=== PATIENT | female | born 1985 | race Caucasian/White ===

== ENCOUNTER 2016-07-10 20:07 | Emergency (ER) | payer BC ==
[2016-07-10 21:22] LABS: Appearance,Urine Turbid (Clear); Bacteria,Urine Moderate /hpf; Bilirubin,Urine Negative (Negative); Glucose,Urine (UA) Negative (Negative); Ketones,Urine Trace (Negative); Leukocyte Esterase,Urine Large (Negative); Mucus,Urine Moderate /hpf; Nitrite,Urine Negative (Negative); Particle Count 25815; Protein,Urine 2+ (Negative); RBC,Urine >182 /hpf (0-5); Specific Gravity,Urine 1.034 (1.001-1.035); Squamous Epithelial Cell,Urine 27 /hpf (0-4); UA Billing (MACRO vs. MICRO) MICRO; WBC,Urine >182 /hpf (0-5)
[2016-07-10] MEDS ORDERED: valACYclovir 500 MG TAB PO STA (22:20)
[2016-07-10] MEDS ORDERED: SULFAMETH-TMP DS STARTER PACK 2 TAB BTL PO STA (22:21)
--- NOTE | 2016-07-10 22:25 | ED ---
Female Urogenital HPI - General Chief complaint: Urogenital Stated complaint: Female Time Seen by Provider: 07/10/16 20:38 Source: patient, RN notes reviewed Mode of arrival: ambulatory Limitations: no limitations - History of Present Illness Initial comments: Patient is a 31-year-old female with chief complaint of 3 days of dysuria and red bumps over her labia. Patient reports that she found out that her cheated on her a year ago. She states that she had not received any testing for 6 transmitted disease afterwards. She states that she is currently with a new sexual partner but is not concerned of any STDs from him. Patient states that she's had a upper respiratory infection for the past few days prior to her urinary symptoms. Patient states that she has no specific vaginal discharge. She reports that every time she urinates it's very severe pain. Patient states that she's never had any history of herpes or sexual transmitted infection. Patient denies any nausea vomiting fever or chills. Last Menstrual Period: 04/27/16 - Related Data Previous Rx's Medication Instructions Recorded Acetaminophen-Codeine 300-30mg 1 tab PO Q4H PRN #12 tablet 07/10/16 [Tylenol #3] Sulfamethox-Tmp 800-160Mg [Bactrim 1 tab PO Q12HR #14 tab 07/10/16 DS 800-160 mg] valACYclovir HCL [Valtrex] 1,000 mg PO BID 10 Days 07/10/16 Allergies Allergy/AdvReac Type Severity Reaction Status Date / Time No Known Allergies Allergy Verified 07/10/16 20:30 Review of Systems ROS Statement: Those systems with pertinent positive or pertinent negative responses have been documented in the HPI. ROS Other: All systems not noted in ROS Statement are negative. Past Medical History Past Medical History: No Reported History History of Any Multi-Drug Resistant Organisms: None Reported Past Surgical History: No Surgical Hx Reported Past Psychological History: Depression Smoking Status: Never smoker Past Alcohol Use History: Occasional Past Drug Use History: None Reported General Exam - General Exam Comments Initial Comments: Pleasant 31-year-old female. Limitations: no limitations General appearance: alert, in no apparent distress Head exam: Present: atraumatic, normocephalic, normal inspection Eye exam: Present: normal appearance, PERRL, EOMI. Absent: scleral icterus, conjunctival injection, periorbital swelling ENT exam: Present: normal exam, mucous membranes moist Neck exam: Present: normal inspection. Absent: tenderness, meningismus, lymphadenopathy Respiratory exam: Present: normal lung sounds bilaterally. Absent: respiratory distress, wheezes, rales, rhonchi, stridor Cardiovascular Exam: Present: regular rate, normal rhythm, normal heart sounds. Absent: systolic murmur, diastolic murmur, rubs, gallop, clicks GI/Abdominal exam: Present: soft, normal bowel sounds. Absent: distended, tenderness, guarding, rebound, rigid External exam: Present: erythema (Swelling and erythema to the right labia majora.), swelling, lesions (Erythematous ulcerations scattered throughout bilateral labia. Majority of the lesions are in the labia minora.). Absent: normal external exam Speculum exam: Present: vaginal discharge (Scant vaginal discharge.), other (I did obtain a culture from the vaginal opening.). Absent: normal speculum exam ( I was able to perform a full speculum exam due to significant amount of pain and irritation at the patient wasn't.), cervical discharge, vaginal bleeding Extremities exam: Present: normal inspection, full ROM, normal capillary refill. Absent: tenderness, pedal edema, joint swelling, calf tenderness Back exam: Present: normal inspection Neurological exam: Present: alert, oriented X3, CN II-XII intact Psychiatric exam: Present: normal affect, normal mood Skin exam: Present: warm, dry, intact, normal color. Absent: rash Course Vital Signs 07/10/16 07/10/16 20:31 21:29 Temperature 99 F 98.8 F Pulse Rate 89 100 Respiratory 20 20 Rate Blood Pressure 138/81 112/73 O2 Sat by Pulse 98 99 Oximetry Medical Decision Making - Medical Decision Making Patient is a 31-year-old female with chief complaint of 3 days of dysuria and red bumps over her labia. Patient reports that she found out that her cheated on her a year ago. She states that she had not received any testing for 6 transmitted disease afterwards. She states that she is currently with a new sexual partner but is not concerned of any STDs from him. Patient states that she's had a upper respiratory infection for the past few days prior to her urinary symptoms. Patient states that she has no specific vaginal discharge. She reports that every time she urinates it's very severe pain. Patient states that she's never had any history of herpes or sexual transmitted infection. Patient's lesions are consistent with herpes genitalis. Multiple erythematous blisters and ulcerations scattered throughout bilateral labia majora and majority of them are in the labia minora. The right labia is erythematous and swollen. Patient's urinalysis just so signs of significant infection. Was unable to perform a full speculum exam due to significant amount of pain the patient was then. Patient refused. Did obtain a culture of some scant vaginal discharge at the vaginal opening. Patient will be started on Valtrex and Bactrim for urinary tract infection. I discussed that she will know the results in 2 days. Patient agrees with treatment plan will comply. - Lab Data Lab Results 07/10/16 07/10/16 Range/Units 20:41 20:41 Urine Color Yellow Urine Appearance Turbid H (Clear) Urine pH 6.0 (5.0-8.0) Ur Specific [place] 1.034 (1.001-1.035) Urine Protein 2+ H (Negative) Urine Glucose (UA) Negative (Negative) Urine Ketones Trace H (Negative) Urine Blood Moderate H (Negative) Urine Nitrite Negative (Negative) Urine Bilirubin Negative (Negative) Urine Urobilinogen 3.0 (<2.0) mg/dL Ur Leukocyte Esterase Large H (Negative) Urine RBC >182 H (0-5) /hpf Urine WBC >182 H (0-5) /hpf Ur Squamous Epith Cells 27 H (0-4) /hpf Urine Bacteria Moderate H (None) /hpf Urine Mucus Moderate H (None) /hpf Urine HCG, Qual Not Detected (Not Detectd) Disposition Clinical Impression: Herpes genitalia, Urinary tract infection Disposition: HOME SELF-CARE Condition: Good Instructions: Urinary Tract Infection in Women (ED), Genital Herpes Simplex (ED ) Additional Instructions: Patient aggressively prescriptions. Follow-up with primary care provider. Return to emergency occur. Prescriptions: Acetaminophen-Codeine 300-30mg [Tylenol #3] 1 tab PO Q4H PRN #12 tablet PRN Reason: Pain Sulfamethox-Tmp 800-160Mg [Bactrim DS 800-160 mg] 1 tab PO Q12HR #14 tab valACYclovir HCL [Valtrex] 1,000 mg PO BID 10 Days Referrals: Paula Cho MD [Primary Care Provider] - 1-2 days Time of Disposition: 22:24
[2016-07-10 22:51] VITALS: BP 125/85; PULSE 98; RESP 18; TEMP 99
[2016-07-12 12:32] LABS: Chlamydia/GC Source Vaginal
== END 2016-07-10 22:56 | disposition home or self-care (01) ==
LOC: EC 20:07
DX: A60.00 Herpesviral infection of urogenital system, unspecified (principal); N39.0 Urinary tract infection, site not specified; Z79.899 Other long term (current) drug therapy
CPT/HCPCS: 36415; 81001; 81025; 86694; 86695; 86696; 86780; 87070; 87086; 87205; 87491; 87591; 87808; 99283

== ENCOUNTER 2017-05-15 14:51 | Emergency (ER) | payer BC ==
[2017-05-15 14:59] VITALS: RESP 18
--- NOTE | 2017-05-15 15:59 | ED ---
Female Urogenital HPI - General Chief complaint: Urogenital Stated complaint: Female Time Seen by Provider: 05/15/17 15:10 Source: patient, RN notes reviewed, old records reviewed Mode of arrival: ambulatory Limitations: no limitations - History of Present Illness Initial comments: This patient is a 31-year-old female presents today chief complaint of possible and concern for where her IUD is located. Patient states that she's been feeling for the strings for IUD and has not been able to locate them for the past few days. Patient states that she took a positive urine test at home today and was concerned. Patient states she has no vaginal bleeding. She reports that she is currently being treated for UTI and yeast infection. She states that she has no fever or chills. She denies any back pain or significant lower abdominal pain. Patient reports that her IUD was placed by her PCP proximally 4 years ago, due to come out in December. Last menstrual cycle was 04/12/2018. - Related Data Home Medications Medication Instructions Recorded Confirmed Phenazopyridine [Pyridium] 200 mg PO TID 05/15/17 05/15/17 Pnv No.95/Ferrous Fum/Folic AC 1 tab PO DAILY 05/15/17 05/15/17 [ Multivitamin Tablet] Sulfamethox-Tmp 800-160Mg [Bactrim 1 tab PO Q12HR 05/15/17 05/15/17 DS 800-160 mg] Allergies Allergy/AdvReac Type Severity Reaction Status Date / Time No Known Allergies Allergy Verified 05/15/17 16:19 Review of Systems ROS Statement: Those systems with pertinent positive or pertinent negative responses have been documented in the HPI. ROS Other: All systems not noted in ROS Statement are negative. Past Medical History Past Medical History: No Reported History History of Any Multi-Drug Resistant Organisms: None Reported Past Surgical History: No Surgical Hx Reported Past Psychological History: Depression Smoking Status: Never smoker Past Alcohol Use History: Rare Past Drug Use History: None Reported General Exam - General Exam Comments Initial Comments: This is a 31-year-old female. No distress. Limitations: no limitations General appearance: alert, in no apparent distress Head exam: Present: atraumatic, normocephalic, normal inspection Eye exam: Present: normal appearance, PERRL, EOMI. Absent: scleral icterus, conjunctival injection, periorbital swelling ENT exam: Present: normal exam, mucous membranes moist Neck exam: Present: normal inspection. Absent: tenderness, meningismus, lymphadenopathy Respiratory exam: Present: normal lung sounds bilaterally. Absent: respiratory distress, wheezes, rales, rhonchi, stridor Cardiovascular Exam: Present: regular rate, normal rhythm, normal heart sounds. Absent: systolic murmur, diastolic murmur, rubs, gallop, clicks GI/Abdominal exam: Present: soft, normal bowel sounds. Absent: distended, tenderness, guarding, rebound, rigid External exam: Present: normal external exam Speculum exam: Present: vaginal discharge. Absent: normal speculum exam ( Patient has significant vaginal discharge consistent with [place] infection.) By manual exam: Present: normal by manual exam, other (no strings identified to locate IUD). Absent: cervical motion tenderness, adnexal tenderness, adnexal mass, uterine enlargement Extremities exam: Present: normal inspection, full ROM, normal capillary refill. Absent: tenderness, pedal edema, joint swelling, calf tenderness Back exam: Present: normal inspection Neurological exam: Present: alert, oriented X3, CN II-XII intact Psychiatric exam: Present: normal affect, normal mood Skin exam: Present: warm, dry, intact, normal color. Absent: rash Course Vital Signs 05/15/17 05/15/17 05/15/17 14:56 15:00 16:44 Temperature 97.9 F 98.8 F Pulse Rate 102 H 74 Respiratory 18 18 Rate Blood Pressure 181/91 134/76 120/59 O2 Sat by Pulse 100 97 Oximetry 05/15/17 19:04 Temperature 99.4 F Pulse Rate 78 Respiratory 18 Rate Blood Pressure 105/56 O2 Sat by Pulse 98 Oximetry Medical Decision Making - Medical Decision Making This patient is a 31-year-old female presents today chief complaint of possible and concern for where her IUD is located. Patient states that she's been feeling for the strings for IUD and has not been able to locate them for the past few days. Patient states that she took a positive urine test at home today and was concerned. Patient states she has no vaginal bleeding. She reports that she is currently being treated for UTI and yeast infection. Patients pelvic exam was performed on able to identify strings for IUD. She does have actual discharge infection. Your analysis is also positive for UTI. She's on medication to treat both of these. She still has multiple days left of her anabiotic's. Transvaginal ultrasound was preformed. She has no evidence of intrauterine .Patient's serum hCG was 153. I discuss the patient will need to follow up with [facility]. We did contact the S[facility]IOR BOOKKEEPER in regards to the unlocated IUD. Patient reports that she did not pull it off herself. S[facility]IOR BOOKKEEPER recommended one view KUB. Discussed risks and benefits for the X ray, patient agrees to persue the xray. Patient KUB shows no identification for KUB. Patient informed of these results, startedon vitamin for and will follow up with OBGYN. All question were answered and return parameters discussed. - Lab Data Lab Results 05/15/17 05/15/17 05/15/17 Range/Units 15:41 15:41 15:41 HCG, Quant mIU/mL Urine Color Dark Yellow Urine Appearance Cloudy H (Clear) Urine pH 6.5 (5.0-8.0) Ur Specific [place] 1.018 (1.001-1.035) Urine Protein Trace H (Negative) Urine Glucose (UA) Negative (Negative) Urine Ketones Negative (Negative) Urine Blood Negative (Negative) Urine Nitrite Positive H (Negative) Urine Bilirubin Negative (Negative) Urine Urobilinogen 2.0 (<2.0) mg/dL Ur Leukocyte Esterase Large H (Negative) Urine RBC 4 (0-5) /hpf Urine WBC 17 H (0-5) /hpf Ur Squamous Epith Cells 14 H (0-4) /hpf Urine Bacteria Moderate H (None) /hpf Urine Mucus Rare H (None) /hpf Urine HCG, Qual Detected (Not Detectd) Blood Type A Positive Blood Type Recheck No 05/15/17 Range/Units 15:41 HCG, Quant 153.0 mIU/mL Urine Color Urine Appearance (Clear) Urine pH (5.0-8.0) Ur Specific [place] (1.001-1.035) Urine Protein (Negative) Urine Glucose (UA) (Negative) Urine Ketones (Negative) Urine Blood (Negative) Urine Nitrite (Negative) Urine Bilirubin (Negative) Urine Urobilinogen (<2.0) mg/dL Ur Leukocyte Esterase (Negative) Urine RBC (0-5) /hpf Urine WBC (0-5) /hpf Ur Squamous Epith Cells (0-4) /hpf Urine Bacteria (None) /hpf Urine Mucus (None) /hpf Urine HCG, Qual (Not Detectd) Blood Type Blood Type Recheck - Radiology Data Radiology results: report reviewed findings could before too early to visualize intrauterine but spontaneous and a topic is not excluded. No evidence of IUD. Serial hCG follow-up is recommended. Disposition Clinical Impression: , UTI (urinary tract infection) Disposition: HOME SELF-CARE Condition: Good Instructions: (ED) Additional Instructions: Patient advised to follow-up with S[facility] Dr. Corrales. Take . No heavy lifting. Return to the emergency department if any alarming signs or symptoms occur. Referrals: None,Stated [Primary Care Provider] - 1-2 days Rossana Corrales MD [STAFF PHYSICIAN] - 1-2 days Kaitlyn Clancy MD [STAFF PHYSICIAN] - 1-2 days Chivo Hansen MD [STAFF PHYSICIAN] - 1-2 days Time of Disposition: 19:18
[2017-05-15 16:08] LABS: Appearance,Urine Cloudy (Clear); Bacteria,Urine Moderate /hpf; Bilirubin,Urine Negative (Negative); Blood,Urine Negative (Negative); Color,Urine Dark Yellow; Glucose,Urine (UA) Negative (Negative); Ketones,Urine Negative (Negative); Leukocyte Esterase,Urine Large (Negative); Mucus,Urine Rare /hpf; Nitrite,Urine Positive (Negative); PH, Urine 6.5 (5.0-8.0); Protein,Urine Trace (Negative); RBC,Urine 4 /hpf (0-5); Specific Gravity,Urine 1.018 (1.001-1.035); Squamous Epithelial Cell,Urine 14 /hpf (0-4); WBC,Urine 17 /hpf (0-5)
--- NOTE | 2017-05-15 16:24 | US ---
EXAMINATION TYPE: US OB <=14 wks transvag DATE OF EXAM: 05/15/2017 COMPARISON: NONE CLINICAL HISTORY: Pain. patient found out she was , supposed to have IUD but unable to find s tring. EXAM PERFORMED: Transvaginal (TV) and Transabdominal (TA) EXAM MEASUREMENTS: GESTATIONAL AGE / DATING Physician Established: not established Dates by LMP: (4 weeks/5 days) EDC: 01/17/2018 Dates by First Scan: No previous this is first scan Dates by Current Scan for: no IUP identified MATERNAL ANATOMY Uterus: 7.2 x 4.6 x 6.5 cm Right Ovary: 3.7 x 3.8 x 4.2 cm Left Ovary: 3.2 x 2.5 x 3.5 cm Post CDS / Adnexa: wnl Presence of free fluid: no free fluid Presence of corpus luteal cyst: on right ovary measures 3.3 x 3.1 x 3.3 cm GESTATION / SURVEY CRL: not identified MSD: not identified Date of LMP: 04/12/2017 Beta HcG (if available): not available at time of exam Uterus is heterogeneous. Endometrium is thickened up to 13 mm. No gestational sac, yolk sac, po le is identified. Linear hypodensity to suggest IUD in endometrial canal is not clearly identified. N o free fluid is seen in pelvic cul-de-sac. Within right ovary there is 3.3 cm simple appearing cyst. Both ovaries are identified. There is no ortiz spicious extraovarian adnexal lesion seen bilaterally. Tiny nabothian cyst is seen in cervix towards end of study. IMPRESSION: Findings could reflect too early to visualize intrauterine but spontaneous is in d ifferential and ectopic is not excluded, serial beta hCG and ultrasound follow-up is advise d.
[2017-05-15 19:06] VITALS: BP 105/56; PULSE 78; TEMP 99.4
--- NOTE | 2017-05-15 19:09 | XR ---
EXAMINATION TYPE: XR KUB DATE OF EXAM: 05/15/2017 COMPARISON: NONE HISTORY: Pain TECHNIQUE: 2 views FINDINGS: 2 upright views of the abdomen were obtained that show no sign of intestinal obstruction or pneumoperitoneum. There is some retained fecal material on the right side. There is some fecal mater ial in the rectum. There are no pathologic calcifications over the kidneys. Lung bases are clear. The re is no evidence of a mass. IMPRESSION: Nonacute abdomen. There is probably mild constipation. I do not see evidence of a radiopa que IUD.
== END 2017-05-15 19:24 | disposition home or self-care (01) ==
LOC: EC 14:51
DX: O23.41 Unspecified infection of urinary tract in pregnancy, first trimester (principal); Z3A.01 Less than 8 weeks gestation of pregnancy; Z32.01 Encounter for pregnancy test, result positive; Z79.899 Other long term (current) drug therapy
CPT/HCPCS: 36415; 74018; 76801; 76817; 81001; 81025; 84702; 86900; 86901; 87086; 99284

== ENCOUNTER → 2017-05-17 | Outpatient (CLI) | payer BC | END | disposition home or self-care (01) | LOC: LABWHC1 16:29 | PROVIDERS: ATTEND Obstetrics & Gynecology Obstetrics | DX: O20.0 Threatened abortion (principal); Z3A.00 Weeks of gestation of pregnancy not specified | CPT/HCPCS: 36415; 84702 ==

== ENCOUNTER → 2017-05-22 | Outpatient (CLI) | payer BC ==
[2017-05-22 11:49] LABS: HCT 37.1 % (34.0-46.0); HGB 12.1 gm/dL (11.4-16.0); MCH 27.9 pg (25.0-35.0); MCHC 32.7 g/dL (31.0-37.0); MCV 85.2 fL (80.0-100.0); Platelet Count 333 k/uL (150-450); RBC 4.35 m/uL (3.80-5.40); RDW 13.3 % (11.5-15.5); WBC 5.7 k/uL (3.8-10.6)
[2017-05-22 18:03] LABS: HIV AB P24 Non-Reactive (Non-Reactive); HIV P24 AG Non-Reactive (Non-Reactive)
== END | disposition home or self-care (01) ==
LOC: LABWHC1 11:05
PROVIDERS: ATTEND Obstetrics & Gynecology Obstetrics
DX: Z34.90 Encounter for supervision of normal pregnancy, unspecified, unspecified trimester (principal); Z3A.00 Weeks of gestation of pregnancy not specified
CPT/HCPCS: 36415; 84702; 85027; 86762; 86780; 87086; 87340; 87390

== ENCOUNTER → 2017-05-27 | Outpatient (CLI) | payer BC | END | disposition home or self-care (01) | LOC: LABWHC1 11:39 | PROVIDERS: ATTEND Obstetrics & Gynecology Obstetrics | DX: O20.0 Threatened abortion (principal) | CPT/HCPCS: 36415; 84702 ==

== ENCOUNTER 2017-06-23 13:01 | Observation (INO) | payer BC ==
[2017-06-23] MEDS ORDERED: SODIUM CHLORIDE 0.9% 1,000 ML IV ONE (14:19)
[2017-06-23] MEDS ORDERED: diphenhydrAMINE 50 MG/ML 1 ML VIAL IVP STA (14:21)
[2017-06-23] MEDS ORDERED: METOCLOPRAMIDE 5 MG/ML 2 ML VIAL IVP STA (14:21)
--- NOTE | 2017-06-23 14:24 | ED ---
Nausea/Vomiting/Diarrhea HPI - General Chief complaint: Nausea/Vomiting/Diarrhea Stated complaint: Vomiting 10 weeks Time Seen by Provider: 06/23/17 14:09 Source: patient Mode of arrival: ambulatory Limitations: no limitations - History of Present Illness Initial comments: This is a 31-year-old female who is at 10 weeks estimated gestational age who presents for department for nausea vomiting and decreased urine output. The patient states that she has a history of hyperemesis gravidarum in the past requiring IV therapies at home. She states that she also had some type of pump that she had to use in her previous pregnancies to keep her from vomiting throughout the . She states that the hyperemesis lasted 7 months during her last . She states that she has not had any lower pelvic cramping or vaginal bleeding. She has not urinated in 2 days and thus she called her [facility] who advised her to come to the emergency department. She denies any diarrhea. No fevers or chills. No significant abdominal discomfort. Just feels nauseated. She has tried Zofran at home without any relief. Also has been on B6 and Unisom without relief there as well. - Related Data Home Medications Medication Instructions Recorded Confirmed Doxylamine Succinate [Unisom] 25 mg PO HS PRN 06/23/17 06/23/17 Ondansetron HCl [Zofran] 4 mg PO BID PRN 06/23/17 06/23/17 Pyridoxine [Vitamin B-6] 50 mg PO HS 06/23/17 06/23/17 Allergies Allergy/AdvReac Type Severity Reaction Status Date / Time No Known Allergies Allergy Verified 06/23/17 15:49 Review of Systems ROS Statement: Those systems with pertinent positive or pertinent negative responses have been documented in the HPI. ROS Other: All systems not noted in ROS Statement are negative. Past Medical History Past Medical History: No Reported History History of Any Multi-Drug Resistant Organisms: None Reported Past Surgical History: No Surgical Hx Reported Past Psychological History: Depression Smoking Status: Never smoker Past Alcohol Use History: Rare Past Drug Use History: None Reported General Exam - General Exam Comments Initial Comments: Constitutional: Awake alert Appears comfortable Head: Normocephalic atraumatic Eyes: no conjunctival injection No scleral icterus EOMI ENT: Oral mucosa is tacky, nonerythematous oropharynx Neck: No JVD Supple Heart: Regular rate rhythm normal S1-S2 no murmurs Lungs: Clear to auscultation bilaterally No wheezing No rales Abdomen: Soft nondistended nontender Extremities: Non edematous DP pulses intact Radial pulses intact Neuro: A&Ox3 No focal neurologic deficits Psych: Appropriate mood and affect Limitations: no limitations Course Vital Signs 06/23/17 06/23/17 06/23/17 13:10 14:44 16:10 Temperature 99.2 F 99.0 F Pulse Rate 84 100 83 Respiratory 17 16 16 Rate Blood Pressure 105/67 110/70 117/63 O2 Sat by Pulse 100 98 98 Oximetry Medical Decision Making - Medical Decision Making This is a 31-year-old female who came in for nausea and vomiting associated with . The patient has had weight loss and is clinically dehydrated with ketones in the blood. She also has a mild anion gap metabolic acidosis. The patient was started on D5 half-normal saline. She was given a liter bolus. No urination emergency department. She has not urinated in 2 days. Going to keep her overnight for hydration. Dr. Nicholas accepts the admission. - Lab Data Result diagrams: 06/23/17 14:16 06/23/17 14:16 Lab Results 06/23/17 06/23/17 Range/Units 14:16 14:16 WBC 10.5 (3.8-10.6) k/uL RBC 5.08 (3.80-5.40) m/uL Hgb 14.5 (11.4-16.0) gm/dL Hct 41.0 (34.0-46.0) % MCV 80.6 (80.0-100.0) fL MCH 28.5 (25.0-35.0) pg MCHC 35.4 (31.0-37.0) g/dL RDW 12.9 (11.5-15.5) % Plt Count 286 (150-450) k/uL Neutrophils % 79 % Lymphocytes % 15 % Monocytes % 4 % Eosinophils % 1 % Basophils % 0 % Neutrophils # 8.3 H (1.3-7.7) k/uL Lymphocytes # 1.5 (1.0-4.8) k/uL Monocytes # 0.4 (0-1.0) k/uL Eosinophils # 0.1 (0-0.7) k/uL Basophils # 0.1 (0-0.2) k/uL Sodium 137 (137-145) mmol/L Potassium 4.1 (3.5-5.1) mmol/L Chloride 104 (98-107) mmol/L Carbon Dioxide 17 L (22-30) mmol/L Anion Gap 16 mmol/L BUN 11 (7-17) mg/dL Creatinine 0.46 L (0.52-1.04) mg/dL Est GFR (CKD-EPI)AfAm >90 (>60 ml/min/1.73 sqM) Est GFR (CKD-EPI)NonAf >90 (>60 ml/min/1.73 sqM) Glucose 70 L (74-99) mg/dL Calcium 9.3 (8.4-10.2) mg/dL Magnesium 1.8 (1.6-2.3) mg/dL Total Bilirubin 0.5 (0.2-1.3) mg/dL AST 17 (14-36) U/L ALT 20 (9-52) U/L Alkaline Phosphatase 75 (38-126) U/L Total Protein 7.4 (6.3-8.2) g/dL Albumin 4.1 (3.5-5.0) g/dL Acetone, Qual Positive (Negative) Disposition Clinical Impression: Hyperemesis gravidarum Disposition: ADMITTED IP TO THIS [facility] Condition: Stable
[2017-06-23 14:56] LABS: Basophils # (A) 0.1 k/uL (0-0.2); Basophils % (A) 0 %; Eosinophils # (A) 0.1 k/uL (0-0.7); Eosinophils % (A) 1 %; HGB 14.5 gm/dL (11.4-16.0); Lymphocytes # (A) 1.5 k/uL (1.0-4.8); Lymphocytes % (A) 15 %; MCH 28.5 pg (25.0-35.0); MCHC 35.4 g/dL (31.0-37.0); MCV 80.6 fL (80.0-100.0); Mean Platelet Volume 7.1; Monocytes # (A) 0.4 k/uL (0-1.0); Monocytes % (A) 4 %; Neutrophils # (A) 8.3 k/uL (1.3-7.7); Neutrophils % (A) 79 %; Platelet Count 286 k/uL (150-450); RBC 5.08 m/uL (3.80-5.40); RDW 12.9 % (11.5-15.5); WBC 10.5 k/uL (3.8-10.6)
[2017-06-23 15:32] LABS: ALT 20 U/L (9-52); AST 17 U/L (14-36); Albumin 4.1 g/dL (3.5-5.0); Alkaline Phosphatase 75 U/L (38-126); Anion Gap 16 mmol/L; Blood Urea Nitrogen 11 mg/dL (7-17); Calcium 9.3 mg/dL (8.4-10.2); Carbon Dioxide 17 mmol/L (22-30); Chloride 104 mmol/L (98-107); Glucose 70 mg/dL (74-99); Magnesium 1.8 mg/dL (1.6-2.3); Potassium 4.1 mmol/L (3.5-5.1); Sodium 137 mmol/L (137-145); Total Bilirubin 0.5 mg/dL (0.2-1.3); Total Protein 7.4 g/dL (6.3-8.2)
[2017-06-23] MEDS ORDERED: DEXTROSE 5%-0.45% NACL 1,000 ML IV ONE (15:36)
[2017-06-23] MEDS ORDERED: NALOXONE 0.4 MG/ML 1 ML VIAL IV PRN (16:09)
[2017-06-23 16:31] LABS: Appearance,Urine Cloudy (Clear); Color,Urine Yellow; Protein,Urine 1+ (Negative); Specific Gravity,Urine 1.028 (1.001-1.035)
[2017-06-23 16:32] LABS: Bacteria,Urine Rare /hpf; Bilirubin,Urine Negative (Negative); Blood,Urine Negative (Negative); Glucose,Urine (UA) Negative (Negative); Ketones,Urine 4+ (Negative); Leukocyte Esterase,Urine Small (Negative); Mucus,Urine Many /hpf; Nitrite,Urine Negative (Negative); RBC,Urine 3 /hpf (0-5); Squamous Epithelial Cell,Urine 10 /hpf (0-4); WBC,Urine 10 /hpf (0-5)
[2017-06-23 17:37] VITALS: BMI 41.6
[2017-06-23] MEDS ORDERED: PYRIDOXINE 50 MG TAB PO SCH (21:00)
[2017-06-23] MEDS: METOCLOPRAMIDE 5 MG/ML 2 ML VIAL IVP PRN (21:27)
[2017-06-23] MEDS: diphenhydrAMINE 25 MG CAP PO PRN (22:28)
[2017-06-24] MEDS: DEXTROSE 5%-0.45% NACL 1,000 ML IV SCH ×2 (01:26→11:27)
[2017-06-24] MEDS: METOCLOPRAMIDE 5 MG/ML 2 ML VIAL IVP PRN ×2 (03:36→09:11)
[2017-06-24] MEDS: diphenhydrAMINE 25 MG CAP PO PRN (06:58)
[2017-06-24 09:01] VITALS: BP 106/66; PULSE 86; RESP 20; TEMP 97.8
[2017-06-24 09:21] LABS: Appearance,Urine Clear (Clear); Bacteria,Urine Rare /hpf; Bilirubin,Urine Negative (Negative); Blood,Urine Negative (Negative); Color,Urine Yellow; Glucose,Urine (UA) Negative (Negative); Hyaline Casts,Urine 2 /lpf (0-2); Ketones,Urine 1+ (Negative); Leukocyte Esterase,Urine Small (Negative); Mucus,Urine Many /hpf; Nitrite,Urine Negative (Negative); Protein,Urine Trace (Negative); Specific Gravity,Urine 1.013 (1.001-1.035); Squamous Epithelial Cell,Urine 1 /hpf (0-4); Urobilinogen,Urine <2.0 mg/dL (<2.0); WBC,Urine 6 /hpf (0-5)
--- NOTE | 2017-06-24 11:44 | P.OBCN ---
History of Present Illness Consult date: 06/24/17 Reason for consult: other (Hyperemesis gravidarum, 10 weeks intrauterine ) Chief complaint: Hyperemesis, dehydration History of present illness: The patient is a 31-year-old 4 para 2012 admitted at approximately 10 weeks of is established by last menstrual period and confirmed by first trimester ultrasound. She is admitted with the hyperemesis gravidarum for which she has a history in her previous . She additionally was noted to be severely dehydrated with 4+ ketones on urinalysis. Ultrasound performed in the office has demonstrated a normal viable intrauterine . Upon admission she has been aggressively rehydrated and, this morning, has tolerated a regular diet. She denies any other significant symptoms and reports that her nausea significantly improved. Obstetrical history: 4 para 2012 with 2 term vaginal deliveries of the second of which was complicated by hyperemesis for the majority of the . She also had one early miscarriage. Laboratory workup for labs was within normal limits and the patient is Rh+. Gynecologic history: Unremarkable with no history of any infections to include STDs. Review of Systems Review of systems is confined to history of present illness. Past Medical History Past Medical History: No Reported History, Pneumonia Additional Past Medical History / Comment(s): hx of hyperemesis. !st preg n/v, 2nd preg miscarrage at 6 weeks, 3rd preg hyperemsis for 7 months with picc line and at home IV hydration. Hs of anemia, vegetarian diet. Hx UTI April 2017. Fx right ankle Feb 2017 History of Any Multi-Drug Resistant Organisms: None Reported Past Surgical History: No Surgical Hx Reported Additional Past Anesthesia/Blood Transfusion Reaction / Comm: epidural with last caused profound hypotension. Past Psychological History: Depression Smoking Status: Never smoker Past Alcohol Use History: Rare Past Drug Use History: None Reported - Past Family History Mother Family Medical History: Musculoskeletal Disorder Additional Family Medical History / Comment(s): scoliosis, spina bifida Father Family Medical History: Coronary Artery Disease (CAD) Additional Family Medical History / Comment(s): Insulin resistance, heart problems, in January 2017 Medications and Allergies Home Medications Medication Instructions Recorded Confirmed Type Doxylamine Succinate [Unisom] 25 mg PO HS PRN 06/23/17 06/23/17 History Ondansetron HCl [Zofran] 4 mg PO BID PRN 06/23/17 06/23/17 History Pyridoxine [Vitamin B-6] 50 mg PO HS 06/23/17 06/23/17 History Allergies Allergy/AdvReac Type Severity Reaction Status Date / Time No Known Allergies Allergy Verified 06/23/17 17:53 Exam - Vital Signs Vital signs: Vital Signs Temp Pulse Pulse Pulse Resp BP BP 06/24/17 08:59 97.8 F 86 20 106/66 06/24/17 03:30 98.2 F 76 18 99/56 06/23/17 20:25 97.9 F 82 18 103/56 06/23/17 17:30 84 06/23/17 17:24 99.5 F 84 16 124/68 06/23/17 17:20 99.5 F 84 16 124/68 06/23/17 17:16 99 F 82 16 114/62 06/23/17 16:10 99.0 F 83 16 117/63 06/23/17 14:44 100 16 110/70 06/23/17 13:10 99.2 F 84 17 105/67 Pulse Ox 06/24/17 08:59 06/24/17 03:30 97 06/23/17 20:25 97 06/23/17 17:30 06/23/17 17:24 98 06/23/17 17:20 98 06/23/17 17:16 98 06/23/17 16:10 98 06/23/17 14:44 98 06/23/17 13:10 100 Intake and Output 06/23/17 06/24/17 06/24/17 22:59 06:59 14:59 Intake Total 240 970 Output Total 200 300 150 Balance 40 670 -150 Intake: Intake, IV Titration 970 Amount Dextrose 5%-0.45% NaCl 1, 970 000 ml @ 100 mls/hr IV . Q10H [facility] Rx#:[id number] Oral 240 Output: Urine 200 300 150 Other: Weight 130.6 kg In general, this is a well-developed, moderately obese white female in no acute distress. Her heart has regular rhythm and rate without murmur. Her lungs are clear to auscultation bilaterally in all salas. Her abdomen is nondistended, has normal active bowel sounds, is soft, nontender, without any palpable masses , hepatosplenomegaly, or hernias. Her extremities without any cyanosis, clubbing, or edema and are nontender to palpation bilaterally. Digital cervical examination is deferred. Results Result Diagrams: 06/23/17 14:16 06/23/17 14:16 Abnormal Lab Results - Last 24 Hours (Table) 06/23/17 06/23/17 06/23/17 Range/Units 14:16 14:16 16:10 Neutrophils # 8.3 H (1.3-7.7) k/uL Carbon Dioxide 17 L (22-30) mmol/L Creatinine 0.46 L (0.52-1.04) mg/dL Glucose 70 L (74-99) mg/dL Urine Appearance Cloudy H (Clear) Urine Protein 1+ H (Negative) Urine Ketones 4+ H (Negative) Ur Leukocyte Esterase Small H (Negative) Urine WBC 10 H (0-5) /hpf Ur Squamous Epith Cells 10 H (0-4) /hpf Urine Bacteria Rare H (None) /hpf Urine Mucus Many H (None) /hpf 06/24/17 Range/Units 08:50 Neutrophils # (1.3-7.7) k/uL Carbon Dioxide (22-30) mmol/L Creatinine (0.52-1.04) mg/dL Glucose (74-99) mg/dL Urine Appearance (Clear) Urine Protein Trace H (Negative) Urine Ketones 1+ H (Negative) Ur Leukocyte Esterase Small H (Negative) Urine WBC 6 H (0-5) /hpf Ur Squamous Epith Cells (0-4) /hpf Urine Bacteria Rare H (None) /hpf Urine Mucus Many H (None) /hpf Assessment and Plan (1) 10 weeks gestation of Current Visit: Yes Status: Acute Code(s): Z3A.10 - 10 WEEKS GESTATION OF SNOMED Code(s): 56889015 (2) Hyperemesis gravidarum Current Visit: Yes Status: Acute Code(s): O21.0 - MILD HYPEREMESIS GRAVIDARUM SNOMED Code(s): 67619276 Plan: The patient has been rehydrated though there were still 1+ ketones present on this morning's urinalysis. I would consider bolusing another liter of fluid and discharging the patient home as she is tolerating a regular diet. I strongly encouraged her to aggressively continue oral hydration at home with anti-menorrhagia every 6 as needed. She otherwise is to follow-up in the office in approximately 2 weeks as previously scheduled. There is no obstetrical intervention necessary at this time. I will otherwise sign off the consult as the patient should be stable for discharge today.
--- NOTE | 2017-06-24 12:55 | P.HPIM ---
History of Present Illness H&P Date: 06/23/17 Chief Complaint: Nausea and vomiting This is a 31-year-old female who is at 10 weeks estimated gestational age who presents for department for nausea vomiting and decreased urine output. The patient states that she has a history of hyperemesis gravidarum in the past requiring IV therapies at home. She states that she also had Zofran pump that she had to use in her previous pregnancies to keep her from vomiting throughout the . She states that the hyperemesis lasted 7 months during her last . She states that she has not had any lower pelvic cramping or vaginal bleeding. She has not urinated in 2 days and thus she called her OB/ TAR ROOFER who advised her to come to the emergency department. She denies any diarrhea. No fevers or chills. No significant abdominal discomfort. Just feels nauseated. She has tried Zofran at home without any relief. Also has been on B6 and Unisom without relief there as well. Review of Systems Constitutional: Patient denies any fever or chills . No generalized weakness or weight loss. Abdomen: Nausea and vomiting and unable to keep down food. No abdominal pain he had decreased urine output Cardiovascular: Patient denies any chest pain or short of breath no palpitations. Respiratory: patient denied any cough is from production. No shortness of breath Neurologic: Patient denied any numbness or tingling headache. Musculoskeletal: Patient denies any complaints of joint swelling or deformity. Skin: Negative Psychiatric: Negative Endocrine: No heat or cold intolerance. No recent weight gain. Genitourinary: No dysuria or hematuria. All other 14 point ROS negative except the above Past Medical History Past Medical History: No Reported History History of Any Multi-Drug Resistant Organisms: None Reported Past Surgical History: No Surgical Hx Reported Past Psychological History: Depression Smoking Status: Never smoker Past Alcohol Use History: Rare Past Drug Use History: None Reported - Past Family History Mother Family Medical History: Musculoskeletal Disorder Additional Family Medical History / Comment(s): scoliosis, spina bifida Father Family Medical History: Coronary Artery Disease (CAD) Additional Family Medical History / Comment(s): Insulin resistance, heart problems, in January 2017 Medications and Allergies Home Medications Medication Instructions Recorded Confirmed Type Doxylamine Succinate [Unisom] 25 mg PO HS PRN 03/09/18 03/09/18 History Ondansetron HCl [Zofran] 4 mg PO BID PRN 06/23/17 06/23/17 History Pyridoxine [Vitamin B-6] 50 mg PO HS 06/23/17 06/23/17 History Allergies Allergy/AdvReac Type Severity Reaction Status Date / Time No Known Allergies Allergy Verified 06/23/17 17:53 Physical Exam Vitals: Vital Signs Temp Pulse Resp BP Pulse Ox 06/23/17 16:10 99.0 F 83 16 117/63 98 06/23/17 14:44 100 16 110/70 98 06/23/17 13:10 99.2 F 84 17 105/67 100 Intake and Output 06/23/17 06/23/17 06/23/17 06:59 14:59 22:59 Other: Weight 131.542 kg Patient Weight 06/24/17 06:59 Weight 131.542 kg PHYSICAL EXAMINATION: Patient is lying in the bed comfortably, no acute distress, awake alert and oriented.. HEENT: Normocephalic. Neck is supple. Pupils reactive. Nostrils clear. Oral cavity is moist. Ears reveal no drainage. Neck reveals no JVD, carotid bruits, or thyromegaly. CHEST EXAMINATION: Trachea is central. Symmetrical expansion. Lung salas clear to auscultation and percussion. CARDIAC: Normal S1, S2 with no gallops. No murmurs ABDOMEN: Soft. Bowel sounds normal. No organomegaly. No abdominal bruits. Extremities: reveal no edema. No clubbing or cyanosis Neurologically awake, alert, oriented x3 with well-coordinated movements. No focal deficits noted Skin: No rash or skin lesions. Psychiatric: Coperative. Nonsuicidal Musculoskeletal: No joint swelling or deformity. Normal range of motion. Results CBC & Chem 7: 06/23/17 14:16 06/23/17 14:16 Labs: Abnormal Lab Results - Last 24 Hours (Table) 06/23/17 06/23/17 06/23/17 Range/Units 14:16 14:16 16:10 Neutrophils # 8.3 H (1.3-7.7) k/uL Carbon Dioxide 17 L (22-30) mmol/L Creatinine 0.46 L (0.52-1.04) mg/dL Glucose 70 L (74-99) mg/dL Urine Appearance Cloudy H (Clear) Urine Protein 1+ H (Negative) Urine Ketones 4+ H (Negative) Ur Leukocyte Esterase Small H (Negative) Urine WBC 10 H (0-5) /hpf Ur Squamous Epith Cells 10 H (0-4) /hpf Urine Bacteria Rare H (None) /hpf Urine Mucus Many H (None) /hpf Assessment and Plan Assessment: Hyperemesis gravidarum 10 weeks intrauterine Previous history of significant hyperemesis during requiring antiemetic pump Metabolic ketoacidosis Morbid obesity Plan: Patient denied on IV hydration and antiemetics in the form of Reglan. We will repeat urinalysis tomorrow.. Encourage oral intake and follow closely further admissions based on the clinical course. TOWER CLEANER was consulted. Time with Patient: Greater than 30
--- NOTE | 2017-06-24 13:02 | P.DS ---
Providers Date of admission: 06/23/17 16:09 Expected date of discharge: 06/24/17 Attending physician: Iva Nicholas Consults: 06/23/17 17:40 Consult Physician Routine Consulting Provider: Ingrid Hartman Consult Reason/Comments: hyperemesis gravidarum Do you want consulting provider notified?: Yes Primary care physician: Stated None Hospital Course: Discharge diagnosis Hyperemesis gravidarum 10 weeks intrauterine Previous history of significant hyperemesis during requiring antiemetic pump Metabolic ketoacidosis. Improved Morbid obesity Hospital course This is a 31-year-old female who is at 10 weeks estimated gestational age who presents for department for nausea vomiting and decreased urine output. The patient states that she has a history of hyperemesis gravidarum in the past requiring IV therapies at home. She states that she also had Zofran pump that she had to use in her previous pregnancies to keep her from vomiting throughout the . She states that the hyperemesis lasted 7 months during her last . She states that she has not had any lower pelvic cramping or vaginal bleeding. She has not urinated in 2 days and thus she called her OB/ TAX APPRAISER who advised her to come to the emergency department. She denies any diarrhea. No fevers or chills. No significant abdominal discomfort. Just feels nauseated. She has tried Zofran at home without any relief. Also has been on B6 and Unisom without relief there as well. Patient was continued on IV hydration and antiemetics in the form of Reglan. Repeat urinalysis showed ketones 1+ compared to 4+ on admission... Encourage oral intake . Patient is able to take oral diet slowly.. GREENHOUSE SPECIALIST was consulted. Recommended outpatient follow-up in a week. Otherwise patient is stable to be discharged home. Patient was told to take Reglan history of Zofran for next 3 days every 6 hours as needed for nausea and vomiting. Follow with primary care physician and GREENHOUSE SPECIALIST in the a week. Patient is stable to be discharged home. Discharge physical examination was done and vitals reviewed. Patient Condition at Discharge: Stable Plan - Discharge Summary Discharge Rx Participant: Yes New Discharge Prescriptions: New Metoclopramide [Reglan] 10 mg PO Q6HR PRN #12 tab PRN Reason: Nausea Continue Doxylamine Succinate [Unisom] 25 mg PO HS PRN PRN Reason: Allergy Symptoms Ondansetron HCl [Zofran] 4 mg PO BID PRN PRN Reason: Nausea Pyridoxine [Vitamin B-6] 50 mg PO HS Discharge Medication List Doxylamine Succinate [Unisom] 25 mg PO HS PRN 06/23/17 [History] Ondansetron HCl [Zofran] 4 mg PO BID PRN 06/23/17 [History] Pyridoxine [Vitamin B-6] 50 mg PO HS 06/23/17 [History] Metoclopramide [Reglan] 10 mg PO Q6HR PRN #12 tab 06/24/17 [Rx] Discharge Disposition: HOME SELF-CARE
== END 2017-06-24 13:58 | disposition home or self-care (01) ==
LOC: EC 13:01 → 6PED 16:09
PROVIDERS: ADMIT Internal Medicine; ATTEND Internal Medicine
DX: O21.1 Hyperemesis gravidarum with metabolic disturbance (principal); O99.211 Obesity complicating pregnancy, first trimester; E66.01 Morbid (severe) obesity due to excess calories; Z3A.10 10 weeks gestation of pregnancy; O99.341 Other mental disorders complicating pregnancy, first trimester; F32.9 Major depressive disorder, single episode, unspecified; Z87.440 Personal history of urinary (tract) infections; Z82.49 Family history of ischemic heart disease and other diseases of the circulatory system; Z82.79 Family history of other congenital malformations, deformations and chromosomal abnormalities; Z68.41 Body mass index [BMI] 40.0-44.9, adult
CPT/HCPCS: 96374; 96361 ×6; 96365; 96366; 96375 ×2; 99284 ×2; 96376 ×2; 99285; 36415; 80053; 82009; 83735; 85025; 81001 ×2; 84702; G0378 ×2; J1200; J2765 ×2

== ENCOUNTER → 2017-07-19 | Outpatient (CLI) | payer BC ==
[~2017-07-19] MED LIST: LACTATED RINGERS 1,000 ML IV ONE; ONDANSETRON 4 MG/2 ML VIAL IVP PRN
[2017-07-19 13:55] LABS: Basophils % (A) 0 %; Eosinophils # (A) 0.1 k/uL (0-0.7); Eosinophils % (A) 1 %; HCT 37.5 % (34.0-46.0); HGB 13.1 gm/dL (11.4-16.0); Lymphocytes # (A) 1.3 k/uL (1.0-4.8); Lymphocytes % (A) 24 %; MCH 28.2 pg (25.0-35.0); MCV 80.7 fL (80.0-100.0); Mean Platelet Volume 7.4; Monocytes # (A) 0.3 k/uL (0-1.0); Monocytes % (A) 5 %; Neutrophils # (A) 3.5 k/uL (1.3-7.7); Neutrophils % (A) 68 %; Platelet Count 231 k/uL (150-450); RBC 4.65 m/uL (3.80-5.40); WBC 5.2 k/uL (3.8-10.6)
[2017-07-19 14:08] VITALS: BP 117/69; PULSE 82; RESP 16; TEMP 97.2
[2017-07-19 14:08] LABS: ALT 19 U/L (9-52); AST 20 U/L (14-36); Albumin 3.7 g/dL (3.5-5.0); Alkaline Phosphatase 63 U/L (38-126); Anion Gap 14 mmol/L; Blood Urea Nitrogen 8 mg/dL (7-17); Calcium 9.2 mg/dL (8.4-10.2); Carbon Dioxide 18 mmol/L (22-30); Chloride 106 mmol/L (98-107); Glucose 93 mg/dL (74-99); Sodium 138 mmol/L (137-145); Total Bilirubin 0.4 mg/dL (0.2-1.3); Total Protein 6.9 g/dL (6.3-8.2)
[2017-07-19] MEDS: LACTATED RINGERS 1,000 ML IV SCH ×2 (14:15→15:40)
--- NOTE | 2017-07-19 15:08 | US ---
EXAMINATION TYPE: US OB limited DATE OF EXAM: 07/19/2017 COMPARISON: NONE CLINICAL HISTORY: 1st trimester heart tones. EXAM PERFORMED: Transabdominal (TA) GESTATIONAL AGE / DATING Physician Established: (13 weeks/2 days) EDC: No growth performed on today?s study per ordering physician SURVEY Was not performed. HEART RATE: 141 bpm RHYTHM: Normal IMPRESSION: 1. Limited examination documenting heart tones. 2. Cardiac activity at the time of this examination was 141 bpm.
[2017-07-19 15:52] LABS: Appearance,Urine Clear (Clear); Bacteria,Urine Rare /hpf; Bilirubin,Urine Negative (Negative); Blood,Urine Negative (Negative); Color,Urine Yellow; Glucose,Urine (UA) Negative (Negative); Hyaline Casts,Urine 28 /lpf (0-2); Ketones,Urine 2+ (Negative); Leukocyte Esterase,Urine Trace (Negative); Mucus,Urine Many /hpf; Nitrite,Urine Negative (Negative); Protein,Urine Trace (Negative); RBC,Urine 1 /hpf (0-5); Specific Gravity,Urine 1.018 (1.001-1.035); Squamous Epithelial Cell,Urine 8 /hpf (0-4); Urobilinogen,Urine <2.0 mg/dL (<2.0); WBC,Urine 4 /hpf (0-5)
--- NOTE | 2017-07-28 09:04 | P.MSEPDOC ---
Presenting Problems - Arrival Data Date of Arrival on Unit: 07/19/17 Time of Arrival on Unit: 13:16 Mode of Transport: Portable - Complaint OB-Reason for Admission/Chief Complaint: Hyperemesis Comment: pt states has been unable to keep anything down, diclegis and regbryanna was working but not anymore, has lost 30 lbs since May Medical History - Information : 4 Para: 2 Term: 2 : 0 Abortions: Spontaneous or Elective: 1 Number of Living Children: 2 - Gestational Age Gestational Age by MARIO ALBERTO (wks/days): 13 Weeks and 2 Days - History Complications: Other Comment: hyperemesis Review of Systems - Review of Systems Constitutional: Recent weight loss Breast: No problems ENT: No problems Cardiovascular: No problems Respiratory: No problems Gastrointestinal: No problems Genitourinary: No problems Musculoskeletal: No problems Neurological: No problems Skin: No problems Vital Signs - Temperature Temperature: 97.2 F Temperature Source: Temporal Artery Scan - Pulse Right Pulse Rate: 82 Pulse Assessment Method: Automatic Cuff - Respirations Respiratory Rate: 16 Oxygen Delivery Method: Room Air O2 Sat by Pulse Oximetry: 98 - Blood Pressure Right Arm Sitting Blood Pressure: 117/69 Blood Pressure Mean: 85 Blood Pressure Source: Automatic Cuff Medical Screen Scoring (Pre) - Uterine Contractions Frequency: N/A Duration: N/A Intensity: N/A - Maternal Vital Signs Maternal Temperature: N/A Maternal Blood Pressure: N/A Signs of Preeclampsia: N/A Maternal Respirations: N/A - Pain Assessment Pain Scale Used: Numeric (1 - 10) Pain Intensity: 0 - Maternal Trauma Maternal Trauma: N/A - Total Score Total Score (Pre): 0 - Level of Risk Level of Risk: Low (0-5) Physician Notification (Pre) - Physician Notified Physician Notified Date: 07/19/17 Physician Notified Time: 13:42 Spoke With: Devan New Order Received: Yes (fluids, cbc,cmp, ua, U/S for fhts) Physician Notification (Post) - Physician Notified Physician Notified Date: 07/19/17 Physician Notified Time: 17:07 Physician/Practitioner Notified:: Dr Hartman Spoke With: Dr Hartman New Order Received: Yes - Notification Comment Comment: Discharge home. Pt to coordinate PICC line placement on outpatient basis. Follow up in the office next week with Rere GILMORE Disposition - Disposition OB Disposition: Discharge to home Discharge Date: 07/19/17 Discharge Time: 17:30 I agree with the RN Medical Screening Exam: Yes Risk & Benefit of care provided described in d/c instruction: Yes Diagnosis: VOMITING OF , UNSPECIFIED
== END | disposition home or self-care (01) ==
LOC: FBPOP 13:15
PROVIDERS: ATTEND Obstetrics & Gynecology Obstetrics
DX: O21.9 Vomiting of pregnancy, unspecified (principal); Z3A.13 13 weeks gestation of pregnancy
CPT/HCPCS: 76815; 80053; 81001; 85025; 96360; 96361; 99214

== ENCOUNTER → 2017-07-21 | Day surgery (SDC) | payer BC ==
[2017-07-20 12:02] VITALS: BMI 40.1
[~2017-07-21] MED LIST changes: -LACTATED RINGERS 1,000 ML IV ONE; +LIDOCAINE 2% INJ 20 MG/ML SQ ONE; -ONDANSETRON 4 MG/2 ML VIAL IVP PRN
[2017-07-21 10:41] VITALS: BP 139/63; PULSE 103; RESP 18; TEMP 98.8
--- NOTE | 2017-07-21 13:00 | IR ---
PICC LINE PLACEMENT: HISTORY: Dehydration requiring long-term IV access PROCEDURE: Ultrasound and fluoroscopic guidance of PICC line placement. COMPLICATIONS: None ANESTHESIA: 1. 1% Lidocaine locally. FINDINGS/TECHNIQUE: The procedure was explained to the patient. The risks, complications, benefits and alternatives were discussed and any questions were answered. Informed consent was obtained. The patient was placed supine on the fluoroscopic table and prepped and draped in the usual sterile [facility] ion. Utilizing a 21 gauge needle and sonographic and fluoroscopic guidance, access in the vein was achieved and there is placement of a 0.018 guidewire. The vein is patent. A 4-F sheath was placed o brenna the guidewire. The guidewire and dilator were removed and a 4-F. PICC line was placed through th e sheath with the tip at the level of the SVC. The sheath was removed, the catheter was flushed and sutured into position. The patient was stable throughout the procedure and remained stable upon disc harge from the Department of Radiology. The vein puncture was patent under ultrasound. A maza scale image was obtained to document patency of the vein punctured. All elements of the maximal barrier technique were utilized. FLUOROSCOPY TIME: 0.2 minutes, one image submitted IMPRESSION: Successful PICC line placement under ultrasound and fluoroscopic guidance.
== END ==
LOC: CATHCVL 10:26
PROVIDERS: ATTEND Radiology Diagnostic Radiology
DX: O21.0 Mild hyperemesis gravidarum (principal)
CPT/HCPCS: 36569; 76937; 77001; C1751; C1769; J2001

== ENCOUNTER 2017-12-05 21:15 | Outpatient (CLI) | payer BC ==
[2017-12-05 23:14] VITALS: BP 123/77; PULSE 88; RESP 20; TEMP 96.9
--- NOTE | 2017-12-11 11:38 | P.MSEPDOC ---
Presenting Problems - Arrival Data Date of Arrival on Unit: 12/05/17 Time of Arrival on Unit: 21:15 Mode of Transport: Wheelchair - Complaint OB-Reason for Admission/Chief Complaint: Pain Comment: pelvic pain and contractions since 1699 Medical History - Information : 4 Para: 2 Term: 2 : 0 Abortions: Spontaneous or Elective: 1 Number of Living Children: 2 - Gestational Age Gestational Age by MARIO ALBERTO (wks/days): 33 Weeks and 1 Days Review of Systems - Review of Systems Constitutional: No problems Breast: No problems ENT: No problems Cardiovascular: No problems Respiratory: No problems Gastrointestinal: No problems Genitourinary: No problems Musculoskeletal: No problems Neurological: No problems Skin: No problems Vital Signs - Temperature Temperature: 96.9 F Temperature Source: Temporal Artery Scan - Pulse Right Brachial Pulse Rate: 88 Pulse Assessment Method: Automatic Cuff - Respirations Respiratory Rate: 20 Oxygen Delivery Method: Room Air O2 Sat by Pulse Oximetry: 98 - Blood Pressure Right Arm Blood Pressure: 123/77 Blood Pressure Mean: 92 Blood Pressure Source: Automatic Cuff Medical Screen Scoring (Pre) - Cervical Exam Dilation: 0 cm = 0 Effacement: Exam Deferred Membranes: Intact - Uterine Contractions Frequency: > 5 minutes apart = 1 Duration: > 40 seconds = 2 Intensity: N/A - Maternal Vital Signs Maternal Temperature: N/A Maternal Blood Pressure: N/A Signs of Preeclampsia: N/A Maternal Respirations: N/A - Pain Assessment Pain Location and Character: Pelvic Pain Scale Used: Numeric (1 - 10) Pain Intensity: 5 Pain Description: *Acute Pain Radiation Location: none Pain Frequency: Constant Pain Duration: 4 Pain Duration Units: Hours Pain Behavior: Moving Slowly, Vocalization Pain Aggravating Factors: Activity - Assessment Baseline FHR: 150 Heart Rate - NICHD Category: Category I (Normal) = 0 NST: Reactive Position: N/A Station: N/A - Total Score Total Score (Pre): 3 - Level of Risk Level of Risk: Low (0-5) Physician Notification (Pre) - Physician Notified Physician Notified Date: 12/05/17 Physician Notified Time: 21:59 Physician/Practitioner Notifed:: Dr. Corrales Spoke With: Dr. Corrales New Order Received: Yes - Notification Comment Comment: discharge pt home, call for appt tomorrow am and follow up in office tomorrow Disposition - Disposition OB Disposition: Triage, Discharge to home, Written follow up instructions reviewed Discharge Date: 12/05/17 Discharge Time: 22:15 I agree with the RN Medical Screening Exam: Yes Risk & Benefit of care provided described in d/c instruction: Yes Diagnosis: FALSE LABOR BEFORE 37 COMPLETED WEEKS OF GEST, THIRD TRI
== END 2017-12-05 22:15 | disposition home or self-care (01) ==
LOC: FBPOP 21:15
PROVIDERS: ATTEND Obstetrics & Gynecology
DX: O47.03 False labor before 37 completed weeks of gestation, third trimester (principal); Z3A.33 33 weeks gestation of pregnancy
CPT/HCPCS: 59025; 99213

== ENCOUNTER 2017-12-06 16:39 | Outpatient (CLI) | payer BC ==
[2017-12-06] MEDS ORDERED: LACTATED RINGERS 1,000 ML IV SCH ×2 (17:00→18:45)
[2017-12-06 18:17] LABS: Appearance,Urine Clear (Clear); Bacteria,Urine Rare /hpf; Bilirubin,Urine Negative (Negative); Blood,Urine Negative (Negative); Color,Urine Yellow; Glucose,Urine (UA) Negative (Negative); Hyaline Casts,Urine 1 /lpf (0-2); Ketones,Urine 3+ (Negative); Leukocyte Esterase,Urine Trace (Negative); Mucus,Urine Few /hpf; Nitrite,Urine Negative (Negative); PH, Urine 6.5 (5.0-8.0); Protein,Urine Trace (Negative); RBC,Urine <1 /hpf (0-5); Specific Gravity,Urine 1.019 (1.001-1.035); Squamous Epithelial Cell,Urine 2 /hpf (0-4); Urobilinogen,Urine <2.0 mg/dL (<2.0); WBC,Urine 3 /hpf (0-5)
--- NOTE | 2017-12-06 18:48 | US ---
EXAMINATION TYPE: US OB TV Cervical Measurement DATE OF EXAM: 12/06/2017 COMPARISON: NONE REASON FOR EXAM: Per Ordering Physician?this transvaginal scan is to assess the CERVICAL LENGTH for i ncompetence or funneling. GESTATIONAL AGE / DATING Physician Established: (33 weeks/2 days) EDC: 01/22/2018 MATERNAL/ SURVEY CERVICAL LENGTH (transvaginal: norm> 2.5cm): 3.2 cm Unable to visualize cervix well transabdominally so transvaginal was performed. Ultrasound evidence of shortened cervix? No Ultrasound evidence of funneling? No HEART RATE: 136 bpm RHYTHM: Normal IMPRESSION: CERVICAL LENGTH IS 3.2CM TRANSVAGINAL.
[2017-12-06 18:52] VITALS: BP 128/79; PULSE 76; RESP 16; TEMP 98.1
[2017-12-06] MEDS: TERBUTALINE 1 MG/ML VIAL SQ PRN ×3 (19:13→20:06)
--- NOTE | 2018-01-13 09:32 | P.MSEPDOC ---
Presenting Problems - Arrival Data Date of Arrival on Unit: 12/06/17 Time of Arrival on Unit: 16:45 Mode of Transport: Portable - Complaint OB-Reason for Admission/Chief Complaint: Other Comment: sent from office to monitor pelvic pressure Medical History - Information : 4 Para: 2 Term: 2 : 0 Abortions: Spontaneous or Elective: 2 Number of Living Children: 2 - Gestational Age Gestational Age by MARIO ALBERTO (wks/days): 33 Weeks and 2 Days Review of Systems - Review of Systems Constitutional: No problems Breast: No problems ENT: No problems Cardiovascular: No problems Respiratory: No problems Gastrointestinal: No problems Genitourinary: No problems Musculoskeletal: No problems Neurological: No problems Skin: No problems Vital Signs - Temperature Temperature: 98.1 F Temperature Source: Oral - Pulse Sitting Pulse Rate: 76 Pulse Assessment Method: Automatic Cuff - Respirations Respiratory Rate: 16 Oxygen Delivery Method: Room Air - Blood Pressure Sitting Blood Pressure: 128/79 Blood Pressure Mean: 95 Blood Pressure Source: Automatic Cuff Medical Screen Scoring (Pre) - Cervical Exam Dilation: 0 cm = 0 - Uterine Contractions Frequency: > 5 minutes apart = 1 Duration: N/A Intensity: N/A - Maternal Vital Signs Maternal Temperature: N/A Signs of Preeclampsia: N/A Maternal Respirations: N/A - Maternal Trauma Maternal Trauma: N/A - Assessment Baseline FHR: 125 Heart Rate - NICHD Category: Category I (Normal) = 0 NST: Reactive Position: N/A Station: N/A - Total Score Total Score (Pre): 1 - Level of Risk Level of Risk: Low (0-5) Physician Notification (Pre) - Physician Notified Physician Notified Date: 12/06/17 Physician Notified Time: 18:51 Physician/Practitioner Notifed:: dr owen New Order Received: Yes Medical Screen Scoring (Post) - Cervical Exam Dilation: 0 cm = 0 Membranes: Intact - Uterine Contractions Frequency: N/A Duration: N/A Intensity: N/A - Maternal Vital Signs Maternal Temperature: N/A Maternal Blood Pressure: N/A Signs of Preeclampsia: N/A Maternal Respirations: N/A - Pain Assessment Pain Scale Used: Numeric (1 - 10) Pain Intensity: 0 - Assessment Heart Rate: 160 Heart Rate - NICHD Category: Category I (Normal) = 0 NST: Reactive Position: N/A Station: N/A - Total Score Total Score (Post): 0 - Post Treatment Level of Risk Post Treatment Level of Risk: Low (0-5) Physician Notification (Post) - Physician Notified Physician Notified Date: 12/06/17 Physician Notified Time: 19:57 Physician/Practitioner Notified:: lexie Spoke With: lexie New Order Received: Yes - Notification Comment Comment: given 3rd dose of terbutaline, check cervix. d/c home if closed and no contx. Disposition - Disposition OB Disposition: Discharge to home Discharge Date: 12/06/17 Discharge Time: 20:55 I agree with the RN Medical Screening Exam: Yes Risk & Benefit of care provided described in d/c instruction: Yes Diagnosis: FALSE LABOR BEFORE 37 COMPLETED WEEKS OF GEST, THIRD TRI
== END 2017-12-06 20:55 | disposition home or self-care (01) ==
LOC: FBPOP 16:39
PROVIDERS: ATTEND Obstetrics & Gynecology Obstetrics
DX: O47.03 False labor before 37 completed weeks of gestation, third trimester (principal); Z3A.33 33 weeks gestation of pregnancy
CPT/HCPCS: 59025; 99214; 96360; 96361; 96372; 81001; 76817; J3105

== ENCOUNTER 2017-12-29 20:05 | Outpatient (CLI) | payer BC ==
[2017-12-29 20:51] VITALS: BP 134/75; PULSE 87; RESP 16; TEMP 98.2
--- NOTE | 2018-01-17 00:12 | P.MSEPDOC ---
Presenting Problems - Arrival Data Date of Arrival on Unit: 12/29/17 Time of Arrival on Unit: 20:07 Mode of Transport: Wheelchair - Complaint OB-Reason for Admission/Chief Complaint: Possible Onset of Labor Medical History - Information : 4 Para: 2 - Gestational Age Gestational Age by MARIO ALBERTO (wks/days): 36 Weeks and 5 Days Review of Systems - Review of Systems Constitutional: No problems Breast: No problems ENT: No problems Cardiovascular: No problems Respiratory: No problems Gastrointestinal: No problems Genitourinary: No problems Musculoskeletal: No problems Neurological: No problems Skin: No problems Vital Signs - Temperature Temperature: 98.2 F Temperature Source: Oral - Pulse Right Sitting Brachial Pulse Rate: 87 Pulse Assessment Method: Automatic Cuff - Respirations Respiratory Rate: 16 Oxygen Delivery Method: Room Air O2 Sat by Pulse Oximetry: 98 - Blood Pressure Right Arm Sitting Blood Pressure: 134/75 Blood Pressure Mean: 94 Blood Pressure Source: Automatic Cuff Medical Screen Scoring (Pre) - Cervical Exam Dilation: 1-3 cm = 1 Effacement: Exam Deferred Membranes: Intact - Uterine Contractions Frequency: > 5 minutes apart = 1 Duration: N/A Intensity: N/A - Maternal Vital Signs Maternal Temperature: N/A Maternal Blood Pressure: N/A Signs of Preeclampsia: N/A Maternal Respirations: N/A - Pain Assessment Pain Location and Character: Abdomen Pain Scale Used: Numeric (1 - 10) Pain Intensity: 3 Pain Management Goal: 0 Pain Description: Cramping Pain Radiation Location: 0 Pain Frequency: Intermittent Pain Duration: 2 Pain Duration Units: Hours Pain Behavior: None Exhibited Effects of Pain: 0 Pain Aggravating Factors: None - Maternal Trauma Maternal Trauma: N/A - Assessment Baseline FHR: 120 Heart Rate - NICHD Category: Category I (Normal) = 0 NST: Reactive Position: N/A Station: N/A - Total Score Total Score (Pre): 2 - Level of Risk Level of Risk: Low (0-5) Physician Notification (Pre) - Physician Notified Physician Notified Date: 12/29/17 Physician Notified Time: 20:31 Physician/Practitioner Notifed:: Dr Corrales Spoke With: Dr Corrales Disposition - Disposition OB Disposition: Discharge to home Discharge Date: 12/29/17 Discharge Time: 22:44 I agree with the RN Medical Screening Exam: No Physician's MSE Comment: Incomplete documentation Risk & Benefit of care provided described in d/c instruction: No Diagnosis: FALSE LABOR BEFORE 37 COMPLETED WEEKS OF GEST, THIRD TRI
== END 2017-12-29 22:44 | disposition home or self-care (01) ==
LOC: FBPOP 20:05
PROVIDERS: ATTEND Obstetrics & Gynecology
DX: O47.03 False labor before 37 completed weeks of gestation, third trimester (principal); Z3A.36 36 weeks gestation of pregnancy
CPT/HCPCS: 59025; 99213

== ENCOUNTER 2017-12-31 22:26 | Outpatient (CLI) | payer BC ==
[2017-12-31 23:41] VITALS: BP 136/83; PULSE 85; RESP 16; TEMP 96.8
--- NOTE | 2018-01-17 00:08 | P.MSEPDOC ---
Presenting Problems - Arrival Data Date of Arrival on Unit: 12/31/17 Time of Arrival on Unit: 22:26 Mode of Transport: Wheelchair - Complaint OB-Reason for Admission/Chief Complaint: Possible Onset of Labor, Rule Out SROM Comment: contractions and moisture since Medical History - Information : 4 Para: 2 Term: 2 : 0 Abortions: Spontaneous or Elective: 1 Number of Living Children: 2 - Gestational Age Gestational Age by MARIO ALBERTO (wks/days): 36 Weeks and 6 Days Review of Systems - Review of Systems Constitutional: No problems Breast: No problems ENT: No problems Cardiovascular: No problems Respiratory: No problems Gastrointestinal: No problems Genitourinary: No problems Musculoskeletal: No problems Neurological: No problems Skin: No problems Vital Signs - Temperature Temperature: 96.8 F Temperature Source: Temporal Artery Scan - Pulse Right Sitting Brachial Pulse Rate: 85 Pulse Assessment Method: Automatic Cuff - Respirations Respiratory Rate: 16 Oxygen Delivery Method: Room Air O2 Sat by Pulse Oximetry: 96 - Blood Pressure Right Arm Sitting Blood Pressure: 136/83 Blood Pressure Mean: 100 Blood Pressure Source: Automatic Cuff Medical Screen Scoring (Pre) - Cervical Exam Dilation: 1-3 cm = 1 Effacement: More than 50% = 2 Membranes: Intact - Uterine Contractions Frequency: > or = 36 weeks =2 Duration: > 40 seconds = 2 - Maternal Vital Signs Maternal Temperature: N/A Maternal Blood Pressure: N/A Signs of Preeclampsia: N/A Maternal Respirations: N/A - Pain Assessment Pain Location and Character: Abdomen Pain Scale Used: Numeric (1 - 10) Pain Intensity: 7 Pain Management Goal: 4 Pain Description: Cramping Pain Frequency: Intermittent Pain Duration: 2 Pain Duration Units: Hours Pain Behavior: Moving Slowly, Vocalization Pain Aggravating Factors: Contractions - Total Score Total Score (Pre): 7 Medical Screen Scoring (Post) - Cervical Exam Dilation: 1-3 cm = 1 Effacement: More than 50% = 2 Membranes: Intact - Uterine Contractions Frequency: > or = 36 weeks =2 Duration: > 40 seconds = 2 - Maternal Vital Signs Maternal Temperature: N/A - Assessment Heart Rate: 135 Heart Rate - NICHD Category: Category I (Normal) = 0 NST: Reactive - Total Score Total Score (Post): 7 - Post Treatment Level of Risk Post Treatment Level of Risk: Medium (6-9) Physician Notification (Post) - Physician Notified Physician Notified Date: 12/31/17 Physician Notified Time: 23:38 Spoke With: Antoni - Notification Comment Comment: Follow up with Dr. Devan Almodovar in the office tomorrow. Disposition - Disposition OB Disposition: Discharge to home Discharge Date: 12/31/17 Discharge Time: 23:43 I agree with the RN Medical Screening Exam: No Physician's MSE Comment: Incomplete documentation Risk & Benefit of care provided described in d/c instruction: No Diagnosis: FALSE LABOR BEFORE 37 COMPLETED WEEKS OF GEST, THIRD TRI
== END 2017-12-31 23:43 | disposition home or self-care (01) ==
LOC: FBPOP 22:26
PROVIDERS: ATTEND Obstetrics & Gynecology
DX: O47.03 False labor before 37 completed weeks of gestation, third trimester (principal); Z3A.36 36 weeks gestation of pregnancy
CPT/HCPCS: 59025; 84112; 99213

== ENCOUNTER 2018-01-15 06:00 | Inpatient (IN) | payer BC ==
[2018-01-15] MEDS: LACTATED RINGERS 1,000 ML IV SCH ×2 (06:38→09:46)
[2018-01-15] MEDS ORDERED: LIDOCAINE 1% INJ 10MG/ML (20 ML MDV) SQ PRN (06:43)
[2018-01-15] MEDS ORDERED: TERBUTALINE 1 MG/ML VIAL SQ PRN (06:43)
[2018-01-15] MEDS ORDERED: METHYLERGONOVINE 0.2 MG/ML 1 ML AMP IM PRN (06:43)
[2018-01-15] MEDS ORDERED: OXYTOCIN 10 UNIT/ML 1 ML VIAL IM PRN (06:43)
[2018-01-15] MEDS ORDERED: CARBOPROST TROMETHAMINE 250 MCG/ML 1 ML AMP IM PRN (06:43)
[2018-01-15] MEDS: OXYTOCIN 20 UNITS/1000 ML NS 1,000 ML IV SCH (06:53)
[2018-01-15 06:54] LABS: Basophils % (A) 0 %; Eosinophils # (A) 0.1 k/uL (0-0.7); Eosinophils % (A) 1 %; HCT 33.8 % (34.0-46.0); HGB 11.1 gm/dL (11.4-16.0); Lymphocytes % (A) 26 %; MCH 25.7 pg (25.0-35.0); MCHC 32.9 g/dL (31.0-37.0); MCV 78.1 fL (80.0-100.0); Mean Platelet Volume 6.7; Monocytes # (A) 0.5 k/uL (0-1.0); Monocytes % (A) 6 %; Neutrophils # (A) 5.1 k/uL (1.3-7.7); Neutrophils % (A) 65 %; Platelet Count 306 k/uL (150-450); RBC 4.34 m/uL (3.80-5.40); WBC 7.8 k/uL (3.8-10.6)
--- NOTE | 2018-01-15 08:43 | P.HPOB ---
History of Present Illness H&P Date: 01/15/18 Chief Complaint: IUP @ 39 0/7 weeks This is a 32-year-old 4 para 2011 at 39-0/7 weeks that presents to labor and delivery for elective induction. Patient notes good movement denies contractions or vaginal bleeding. Patient has been receiving routine care with myself since the first trimester patient did struggle with severe hyperemesis and had a PICC line for fluids and a Zofran pump this has since resolved. Patient is without complaints or concerns this morning next blood work shows a blood type of A+, rubella immune, hepatitis B surface antigen negative, RPR nonreactive, GBS negative. Review of Systems Constitutional: Reports fatigue, Denies chills, Denies fever Ears, nose, mouth and throat: Denies headache Cardiovascular: Reports leg edema, Denies chest pain Respiratory: Denies cough Gastrointestinal: Denies constipation, Denies diarrhea Genitourinary: Reports Past Medical History Past Medical History: GERD/Reflux Additional Past Medical History / Comment(s): hx of hyperemesis. !st preg n/v, 2nd preg miscarrage at 6 weeks, 3rd preg hyperemsis for 7 months with picc line and at home IV hydration. Hs of anemia, vegetarian diet. Hx UTI April 2017. History of Any Multi-Drug Resistant Organisms: None Reported Past Surgical History: No Surgical Hx Reported Additional Past Surgical History / Comment(s): WISDOM TEETH EXTRACTION Past Anesthesia/Blood Transfusion Reactions: Previous Problems w/ Anesthesia, Family History of Problems w/ Anesthesia Additional Past Anesthesia/Blood Transfusion Reaction / Comment(s): MOM- PONV. epidural with last caused profound hypotension." Past Psychological History: Anxiety, Depression Additional Psychological History / Comment(s): OCD. not currently medicated for any of the above Smoking Status: Never smoker Past Alcohol Use History: None Reported Past Drug Use History: None Reported - Past Family History Mother Family Medical History: Musculoskeletal Disorder Additional Family Medical History / Comment(s): scoliosis, spina bifida Father Family Medical History: Coronary Artery Disease (CAD) Additional Family Medical History / Comment(s): Insulin resistance, heart problems, in January 2017 Medications and Allergies Home Medications Medication Instructions Recorded Confirmed Type No Known Home Medications 01/01/18 01/15/18 History Allergies Allergy/AdvReac Type Severity Reaction Status Date / Time No Known Allergies Allergy Verified 01/15/18 06:43 Exam Osteopathic Statement: *. No significant issues noted on an osteopathic structural exam other than those noted in the History and Physical/Consult. Vital Signs Temp Pulse Resp BP Pulse Ox 01/15/18 06:57 96.0 F L 103 H 18 131/80 98 Intake and Output 01/14/18 01/15/18 01/15/18 22:59 06:59 14:59 Other: Weight 133.81 kg - OBG Physical Exam Abdomen: gravid Cervix: /-2 Uterus: enlarged Results Result Diagrams: 01/15/18 06:38 Abnormal Lab Results - Last 24 Hours (Table) 01/15/18 Range/Units 06:38 Hgb 11.1 L (11.4-16.0) gm/dL Hct 33.8 L (34.0-46.0) % MCV 78.1 L (80.0-100.0) fL Assessment and Plan (1) Term Current Visit: Yes Status: Acute Code(s): Z34.80 - ENCOUNTER FOR SUPRVSN OF NORMAL , UNSP TRIMESTER SNOMED Code(s): 84673789 Plan: Will admit for Pitocin induction of labor, amniotomy when appropriate, epidural when patient desires. Anticipate spontaneous vaginal delivery later today
[2018-01-15] MEDS ORDERED: ROPIVACAINE 100 MG, fentaNYL (PF) 200 MCG in SODIUM CHLORIDE 0.9% 76 ML EPIDURAL ONE (11:54)
[2018-01-15] MEDS ORDERED: diphenhydrAMINE 50 MG/ML 1 ML VIAL IVP PRN ×2 (14:49)
[2018-01-15] MEDS ORDERED: ACETAMINOPHEN TAB 325 MG TAB PO PRN (14:49)
[2018-01-15] MEDS ORDERED: SIMETHICONE 80 MG CHEWABLE PO PRN (14:49)
[2018-01-15] MEDS ORDERED: ZOLPIDEM 5 MG TAB PO PRN (14:49)
[2018-01-15] MEDS ORDERED: WITCH HAZEL 1 EACH MED..PAD TOPICAL PRN (14:49)
[2018-01-15] MEDS ORDERED: HYDROCORTISONE 2.5% RECTAL CREAM 30 GM TUBE RECTAL PRN (14:49)
[2018-01-15] MEDS ORDERED: BENZOCAINE/MENTHOL SPRAY 1 GM/SPRAY AEROSOL TOPICAL PRN (14:49)
[2018-01-15] MEDS ORDERED: diphenhydrAMINE 50 MG CAP PO PRN (14:49)
[2018-01-15] MEDS ORDERED: diphenhydrAMINE 25 MG CAP PO PRN (14:49)
[2018-01-15] MEDS ORDERED: LANOLIN CREAM 5 GM TUBE TOPICAL PRN (14:49)
[2018-01-15] MEDS ORDERED: OXYTOCIN 20 UNITS/1000 ML NS 1,000 ML IV SCH (15:00)
--- NOTE | 2018-01-15 15:26 | P.PROBDLV ---
Vaginal Delivery Note - . Vaginal Delivery Note: This is a very pleasant 32-year-old 4 para 2011 at 39-0/7 weeks that presents to labor and delivery for elective induction of labor. Patient was admitted to labor and delivery and Pitocin was started for induction of labor. Contractions became regular nature and amniotomy was performed yielding clear fluid. Patient progressed through labor eventually becoming uncomfortable and requesting an epidural. Patient progressed to complete began pushing and had normal spontaneous vaginal delivery of a viable female infant at 1513, weight of 6 lbs. 13 oz., Apgars of 9 and 9 at one and 5 minutes respectively. Afterwards the placenta was doubly clamped and cut and delivered spontaneously intact with a three-vessel cord being noted. The vaginal vault was inspected and no lacerations necessitating repair were visualized. Her bleeding was moderate at this time with an estimated blood loss approximately 400 mL for this delivery. Uterus was noted to be firm and below the umbilicus at this time. Mother and infant tolerated delivery well and are resting comfortably.
[2018-01-15] MEDS: IBUPROFEN 600 MG TAB PO PRN (21:59)
[2018-01-16 01:00] VITALS: RESP 16
[2018-01-16] MEDS: SENNOSIDES-DOCUSATE SODIUM 1 EACH TAB PO SCH ×2 (01:03→08:32)
[2018-01-16] MEDS: IBUPROFEN 600 MG TAB PO PRN ×3 (04:14→16:45)
[2018-01-16 08:23] LABS: Basophils % (A) 0 %; Eosinophils # (A) 0.1 k/uL (0-0.7); Eosinophils % (A) 2 %; HCT 29.6 % (34.0-46.0); HGB 9.7 gm/dL (11.4-16.0); Lymphocytes # (A) 1.8 k/uL (1.0-4.8); Lymphocytes % (A) 28 %; MCH 25.6 pg (25.0-35.0); MCHC 32.6 g/dL (31.0-37.0); MCV 78.6 fL (80.0-100.0); Monocytes # (A) 0.3 k/uL (0-1.0); Monocytes % (A) 4 %; Neutrophils # (A) 4.2 k/uL (1.3-7.7); Neutrophils % (A) 65 %; Platelet Count 246 k/uL (150-450); RBC 3.77 m/uL (3.80-5.40); RDW 14.3 % (11.5-15.5); WBC 6.5 k/uL (3.8-10.6)
[2018-01-16 09:59] VITALS: BP 110/70; PULSE 87; TEMP 98.4
--- NOTE | 2018-01-16 10:53 | P.DS ---
Providers Date of admission: 01/15/18 06:10 Expected date of discharge: 01/16/18 Attending physician: Ingrid Hartman Primary care physician: Stated None - Discharge Diagnosis(es) (1) Term Current Visit: Yes Status: Acute (2) Status post vaginal delivery Current Visit: Yes Status: Acute Hospital Course: This is a 32-year-old 4 para 2012 at 39-0/7 weeks that presented on 01/15 for elective induction of labor. Patient was started on Pitocin induction of labor, amniotomy was performed clear fluid was obtained. Patient progressed in labor eventually getting an epidural became complete and had a normal spontaneous vaginal delivery of a viable female infant at 1513, weight of 6 lbs. 13 oz., Apgars of 9 and 9 at one and 5 minutes respectively. Patient's course has been uneventful. On this day #1 she is involuting and voiding without difficulty she is tolerating a regular diet without nausea or vomiting. She states her pain is controlled. She does wish to be discharged home at 24 hours. Patient Condition at Discharge: Good Plan - Discharge Summary Discharge Rx Participant: No New Discharge Prescriptions: No Action No Known Home Medications Discharge Medication List No Known Home Medications 01/01/18 [History] Follow up Appointment(s)/Referral(s): Ingrid Hartman DO [Doctor of Osteopathic Medicine] - 4 Weeks Patient Instructions/Handouts: Vaginal Delivery (DC), Vaginal Delivery (GEN)
[2018-01-16] MEDS: OXYTOCIN 20 UNITS/1000 ML NS 1,000 ML IV SCH (12:31)
== END 2018-01-16 16:30 | disposition home or self-care (01) | DRG 807 ==
LOC: 4FBP 06:10
PROVIDERS: ADMIT Obstetrics & Gynecology Obstetrics; ATTEND Obstetrics & Gynecology Obstetrics
PROC: 10E0XZZ Delivery of Products of Conception, External Approach (ICD-10-PCS; principal; 2018-01-15)
PROC: 3E033VJ Introduction of Other Hormone into Peripheral Vein, Percutaneous Approach (ICD-10-PCS; principal; 2018-01-15)
PROC: 10907ZC Drainage of Amniotic Fluid, Therapeutic from Products of Conception, Via Natural or Artificial Opening (ICD-10-PCS; principal; 2018-01-15)
PROC: 00HU33Z Insertion of Infusion Device into Spinal Canal, Percutaneous Approach (ICD-10-PCS; principal; 2018-01-15)
PROC: 3E0R3NZ Introduction of Analgesics, Hypnotics, Sedatives into Spinal Canal, Percutaneous Approach (ICD-10-PCS; principal; 2018-01-15)
DX: O80 Encounter for full-term uncomplicated delivery (principal); Z37.0 Single live birth; Z3A.39 39 weeks gestation of pregnancy; Z82.49 Family history of ischemic heart disease and other diseases of the circulatory system; Z87.440 Personal history of urinary (tract) infections
CPT/HCPCS: 85025; 86850; 86900; 86901

== ENCOUNTER → 2020-07-07 | Outpatient (CLI) | payer BC, OTHER ==
--- NOTE | 2020-07-07 13:43 | MR ---
MR brain without contrast HISTORY: Headaches, visual disturbance, dizziness Multiplanar multisequence imaging through the brain No comparisons There is no restricted diffusion. There is no hemorrhage or hydrocephalus. There are normal vascular flow voids. The cerebellopontine angles, corpus callosum, pituitary, cervical medullary junction are within normal limits. Some scattered hyperintensities are present within the frontal white matter on inversion recovery T2-weighted sequences, approximately 5 lesions are present the largest on axial im age #19 on the left measures only 4 mm. Orbits show symmetric appearance. Paranasal sinuses, mastoid air cells are well aerated. IMPRESSION: Nonspecific white matter demyelination can be related to migraine headaches, hypertension , vasculitis, I'm disease, multiple sclerosis felt to be less likely but not excluded.
== END | disposition home or self-care (01) ==
LOC: RADMRIMAIN 12:13
PROVIDERS: ATTEND Family Medicine
DX: R51.9 Headache, unspecified (principal); H53.8 Other visual disturbances; R42 Dizziness and giddiness
CPT/HCPCS: 70551

== ENCOUNTER → 2020-07-08 | Outpatient (CLI) | payer BC, OTHER ==
--- NOTE | 2020-07-10 13:10 | MR ---
EXAMINATION TYPE: MR pituitary wo/w con DATE OF EXAM: 07/08/2020 COMPARISON: MRI brain 07/07/2020 HISTORY: Headache, Visual disturbance CONTRAST: Performed utilizing 13 mL intravenous Gadavist gadolinium contrast. TECHNIQUE: Multiplanar, multiecho imaging on a 3.0 Angie magnet is performed through the pituitary . Dedicated imaging was performed. This is compared with a standard MRI brain. The craniovertebral junction is normal. The pituitary appears normal. No enlargement is evident. Pituitary stalk is midline. No suspicious in trapituitary masses are identified to suggest micro or macroadenoma. Optic chiasm is normal. Carotid siphons are normal. Sphenoid sinus is normal. Suspicious enhancement within the field of view was not evident. IMPRESSIONS: 1. Normal pituitary.
== END | disposition home or self-care (01) ==
LOC: RADMRIMAIN 12:01
PROVIDERS: ATTEND Family Medicine
DX: H53.9 Unspecified visual disturbance (principal); R51.9 Headache, unspecified
CPT/HCPCS: 70553; A9585

== ENCOUNTER → 2020-09-28 | Outpatient (CLI) | payer BC ==
[2020-09-28 22:26] LABS: Glucose,CSF 52 mg/dL (40-70); Total Protein,CSF 48 mg/dL (12-60)
[2020-09-29 03:35] LABS: Appearance,CSF Clear; CSF Tube Number 4; CSF Tube Volume 2.8; Nucleated Cells, CSF 0 u/L (0-5); Red Blood Cell,CSF 1 u/L (0-10)
[2020-10-01 14:44] LABS: IgG - CSF 2.9 mg/dL (0.0 - 3.4); IgG/Albumin Index (CSF) 0.47 (0.00 - 0.77)
== END | disposition home or self-care (01) ==
LOC: LABWHC1 12:05
PROVIDERS: ATTEND Physician Assistant
DX: R90.82 White matter disease, unspecified (principal)
CPT/HCPCS: 36415; 82040; 82042; 82784; 82945; 83916; 84157; 87801; 88108; 89050